=== PATIENT | female | born 1945 | race Caucasian/White ===

== ENCOUNTER 2021-10-01 06:48 | Inpatient (IN) ==
[~2021-10-01 06:48] MED LIST: ALVIMOPAN 12 MG CAPSULE PO ONE; ERTAPENEM 1,000 MG in SODIUM CHLORIDE 0.9% 100 ML IV ONE; LACTATED RINGERS 1,000 ML IV SCH
[2021-10-01] MEDS ORDERED: ACETAMINOPHEN 500 MG TABLET PO ONE (07:49)
[2021-10-01] MEDS ORDERED: FAMOTIDINE 20 MG TABLET PO ONE (07:49)
[2021-10-01] MEDS ORDERED: GABAPENTIN 400 MG CAPSULE PO ONE (07:49)
[2021-10-01] MEDS ORDERED: DIAZEPAM 5 MG TABLET PO ONE (07:49)
[2021-10-01] MEDS ORDERED: DEXAMETHASONE 4 MG/1 ML VIAL ONE ×2 (09:41→09:44)
[2021-10-01] MEDS ORDERED: SUCCINYLCHOLINE 200 MG/10 ML VIAL ONE (09:41)
[2021-10-01] MEDS ORDERED: propofoL 200 MG/20 ML VIAL IV ONE (09:41)
[2021-10-01] MEDS ORDERED: fentaNYL 100 MCG/2 ML VIAL ONE ×3 (09:41→11:25)
[2021-10-01] MEDS ORDERED: ONDANSETRON 4 MG/2 ML VIAL ONE (09:41)
[2021-10-01] MEDS ORDERED: MIDAZOLAM 2 MG/2 ML VIAL ONE (09:41)
[2021-10-01] MEDS ORDERED: LIDOCAINE 2% 5 ML VIAL ONE (09:41)
[2021-10-01] MEDS ORDERED: ROCURONIUM 50 MG/5 ML VIAL IV ONE (09:41)
[2021-10-01] MEDS ORDERED: ROPIVACAINE 0.5% 30 ML VIAL ONE (09:44)
[2021-10-01] MEDS ORDERED: LIDOCAINE 1% 5 ML VIAL ONE (09:44)
[2021-10-01] MEDS ORDERED: TISSUE ADHESIVE 1 EACH APPLICATOR TOP ONE (09:52)
[2021-10-01] MEDS ORDERED: GLYCOPYRROLATE 0.4 MG/2 ML VIAL ONE ×2 (10:41→11:33)
[2021-10-01] MEDS ORDERED: ePHEDrine 50 MG/ML VIAL ONE (10:44)
[2021-10-01] MEDS ORDERED: INDOCYANINE GREEN 25 MG VIAL IV ONE (11:07)
[2021-10-01] MEDS ORDERED: LACTATED RINGERS 1,000 ML IV ONE (11:33)
[2021-10-01] MEDS ORDERED: SEVOFLURANE 1 UNIT/15 MINUTE INH ONE ×2 (11:33→12:23)
[2021-10-01] MEDS ORDERED: NEOSTIGMINE 10 MG/10 ML VIAL ONE (11:34)
[2021-10-01] MEDS ORDERED: HYDROmorphone 1 MG/1 ML SYRINGE IV PRN ×2 (13:13→14:36)
[2021-10-01] MEDS ORDERED: ONDANSETRON 4 MG/2 ML VIAL IV PRN ×2 (13:13→14:36)
[2021-10-01] MEDS ORDERED: LACTATED RINGERS 1,000 ML IV SCH (14:36)
[2021-10-01 15:01] LABS: Basophils # 0.1 10*3/uL (0.0-0.2); Basophils % 0.4 % (0.0-0.8); Eosinophils % 0.1 % (0.00-10.9); Hematocrit 39.8 VOL% (35.7-47.0); Hemoglobin 12.9 GM/DL (12.0-16.0); Immature Granulocytes % 0.4 %; Immature Granulocytes Absolute 0.05 #; Lymphocytes # 0.9 10*3/uL (1.4-4.0); Lymphocytes % 6.5 % (21.3-54.2); Mean Corpuscular HGB Conc 32.4 GM/DL (32-36); Mean Corpuscular Volume 86.7 FL (87-102); Mean Platelet Volume 10.1 FL (9.6-12.0); Monocytes # 0.4 10*3/uL (0.11-0.8); Monocytes % 2.6 % (1.7-12.7); Platelet Count 328 T/CUMM (130-400); Red Blood Count 4.59 MC/CUMM (3.8-5.5); Red Cell Distribution Width 13.2 % (9.3-17.3); White Blood Count 13.6 T/CUMM (4-12)
[2021-10-01 15:15] LABS: Calcium 8.3 MG/DL (8.5-10.1); Osmolality,Calculated 282.1 MOS/KG (273-304); Potassium 3.5 MMOL/L (3.5-5.1)
[2021-10-01] MEDS: KETOROLAC 15 MG/1 ML VIAL IV SCH ×2 (17:30→20:47)
[2021-10-01] MEDS: ALVIMOPAN 12 MG CAPSULE PO SCH (20:47)
[2021-10-02] MEDS: KETOROLAC 15 MG/1 ML VIAL IV SCH ×2 (04:28→08:52)
[2021-10-02 05:31] LABS: Basophils % 0.2 % (0.0-0.8); Hematocrit 35.9 VOL% (35.7-47.0); Hemoglobin 11.4 GM/DL (12.0-16.0); Immature Granulocytes % 0.5 %; Immature Granulocytes Absolute 0.06 #; Lymphocytes # 1.9 10*3/uL (1.4-4.0); Lymphocytes % 15.7 % (21.3-54.2); Mean Corpuscular HGB Conc 31.8 GM/DL (32-36); Mean Corpuscular Volume 86.9 FL (87-102); Monocytes # 1.5 10*3/uL (0.11-0.8); Monocytes % 12.2 % (1.7-12.7); Neutrophils % 71.4 % (38.7-73.9); Platelet Count 334 T/CUMM (130-400); Red Blood Count 4.13 MC/CUMM (3.8-5.5); Red Cell Distribution Width 13.2 % (9.3-17.3); White Blood Count 12.1 T/CUMM (4-12)
[2021-10-02 05:50] LABS: Calcium 8.5 MG/DL (8.5-10.1); Osmolality,Calculated 281.1 MOS/KG (273-304)
[2021-10-02 07:53] VITALS: BP 132/56
[2021-10-02] MEDS ORDERED: ENOXAPARIN 40 MG/0.4 ML SYRINGE SUBCUT SCH (08:00)
[2021-10-02] MEDS: ALVIMOPAN 12 MG CAPSULE PO SCH (08:52)
[2021-10-02] MEDS ORDERED: PANTOPRAZOLE 40 MG TABLET PO SCH (09:00)
[2021-10-02] MEDS ORDERED: CITALOPRAM 20 MG TABLET PO SCH (09:00)
== END 2021-10-02 10:35 | disposition home or self-care (01) | DRG 331 ==
LOC: N.OR 06:48 → N.SDSINP 06:54 → N.3E 14:29
PROVIDERS: ADMIT Surgery; ATTEND Surgery